=== PATIENT | female | born 1975 | race African-American/Black ===

== ENCOUNTER → 2016-09-04 | Outpatient (CLI) | payer OTHER | LOC: RAD 15:50 | PROVIDERS: ATTEND Nurse Practitioner Family | DX: M25.562 Pain in left knee (principal); M25.561 Pain in right knee; M22.42 Chondromalacia patellae, left knee; M22.41 Chondromalacia patellae, right knee ==

== ENCOUNTER → 2017-07-07 | Outpatient (CLI) | payer OTHER | LOC: OD 09:22 | PROVIDERS: ATTEND Physician Assistant | DX: Z11.2 Encounter for screening for other bacterial diseases (principal) | CPT/HCPCS: 87070 ==

== ENCOUNTER 2019-06-09 19:17 | Emergency (ER) | payer OTHER ==
[2019-06-09 19:26] VITALS: BP 112/73
[2019-06-09] MEDS ORDERED: LIDOCAINE 4% TRANSPARENT DRESSING 5 GM KIT TP ONE (19:59)
--- NOTE | 2019-06-09 20:05 | ER Document Report ---
HPI - HPI Time Seen by Provider: 06/09/19 19:40 Pain Level: 3 Context: Patient is a 44-year-old female who presents to the emergency department with a chief complaint of a bump to the left side of her anterior hip. She states that she felt that there was a pocket of pus there and she ended up squeezing it and was able to get pus out, but then had a piece of tissue that came out. States that the tissue that is out hurts. - CONSTITUTIONAL Constitutional: DENIES: Fever, Chills - EENT EENT: DENIES: Sore Throat - CARDIOVASCULAR Cardiovascular: DENIES: Chest pain - RESPIRATORY Respiratory: DENIES: Coughing - REPRODUCTIVE Reproductive: DENIES: : - MUSCULOSKELETAL Musculoskeletal: DENIES: Extremity pain - DERM Skin Color: Normal Skin Problems: Pustule - left anterior hip Past Medical History - General Information source: Patient - Social History Smoking Status: Never Smoker Chew tobacco use (# tins/day): No Frequency of alcohol use: None Drug Abuse: None Family History: Reviewed & Not Pertinent Patient has suicidal ideation: No Patient has homicidal ideation: No Vertical Provider Document - CONSTITUTIONAL Agree With Documented VS: Yes Exam Limitations: No Limitations General Appearance: No Apparent Distress - INFECTION CONTROL TRAVEL OUTSIDE OF THE [place] IN LAST 30 DAYS: No - HEENT HEENT: Atraumatic, Normocephalic, PERRLA - RESPIRATORY Respiratory: No Respiratory Distress - CARDIOVASCULAR Cardiovascular: Regular Rhythm Pulses: Normal: Radial - MUSCULOSKELETAL/EXTREMETIES Musculoskeletal/Extremeties: FROM - NEURO Level of Consciousness: Awake, Alert, Appropriate - DERM Integumentary: Warm, Dry, No Rash, Abscess - no purulent drainage, but subcutaneous fat coming out of skin from the area of left hip Course - Re-evaluation Re-evalutation: 06/09/19 21:26 She was numbed with topical lidocaine and I was able to remove the subcutaneous fat that was protruding from the hole at her left hip area he tolerated the procedure well. Patient will be placed on Bactrim, as she did have pus coming from that area. She will follow-up with her primary care provider. Follow-up precautions were given. Verbal discharge instructions were given to the patient. They verbalized understanding. They are stable for discharge. - Vital Signs Vital signs: Temp Pulse Resp BP Pulse Ox 98.6 F 104 H 16 112/73 100 06/09/19 19:24 06/09/19 19:24 06/09/19 19:24 06/09/19 19:24 06/09/19 19:24 Discharge - Discharge Clinical Impression: Abscess Condition: Stable Disposition: HOME, SELF-CARE Instructions: Trimethoprim-Sulfa ([facility]) Additional Instructions: You were seen today in the emergency department for an abscess that you ended up draining your self. A small amount of fat had come out of the hole after you squeezed it. The fat was cut away here in the emergency department. There is a chance that the area may bleed. If it does, apply pressure. Please follow-up with a primary care provider in regards to this visit. You are also being started on antibiotics. Please finish all your antibiotics as prescribed. Prescriptions: Sulfamethoxazole/Trimethoprim [Bactrim Ds Tablet] 1 each PO BID 7 Days #14 tablet Referrals: OLEGARIO KLEIN PA [PHYSIC[facility]] - Follow up as needed
== END 2019-06-09 21:45 | disposition home or self-care (01) ==
LOC: ER 19:17
DX: L02.416 Cutaneous abscess of left lower limb (principal)
CPT/HCPCS: 99283; 10060; J3490

== ENCOUNTER 2019-12-03 18:38 | Emergency (ER) | payer OTHER ==
--- NOTE | 2019-12-03 19:46 | ER Document Report ---
ED Medical Screen (RME) - General Chief Complaint: Vaginal Bleeding Stated Complaint: VAGINAL BLEEDING Time Seen by Provider: 12/03/19 19:41 Primary Care Provider: RANJANA KENT MD [Primary Care Provider] - Follow up as needed Mode of Arrival: Ambulatory Information source: Patient Notes: HPI; 44-year-old female presents emergency room complaining of vaginal bleeding with clots that started 7 days ago. Dates she is only lightly spotting at this time. Patient states "I think I am having a miscarriage". States her last normal menstrual cycle was in August. Sexually active not using control. She is a 5 para 2 denies any pain. PE: Alert and oriented x3. Lungs: Clear to auscultation without rales, rhonchi, wheezes. Heart: Regular rate rhythm without murmurs, rubs, gallops. Unable to do full exam in triage. I have greeted and performed a rapid initial assessment of this patient. A comprehensive ED assessment and evaluation of the patient, analysis of test results and completion of the medical decision making process will be conducted by additional ED providers. I have specifically instructed the patient or family members with the patient to immediately return to any nursing staff should anything change in the patient's condition or with their chief complaint. TRAVEL OUTSIDE OF THE [place] IN LAST 30 DAYS: No - Related Data Allergies/Adverse Reactions: metronidazole [From Flagyl] Allergy (Verified 06/09/19 19:43) Physical Exam - Vital signs Vitals: Temp Pulse Resp BP Pulse Ox 98.7 F 87 16 111/69 100 12/03/19 19:03 12/03/19 19:03 12/03/19 19:03 12/03/19 19:03 12/03/19 19:03 Course - Vital Signs Vital signs: Temp Pulse Resp BP Pulse Ox 98.7 F 87 16 111/69 100 12/03/19 19:36 12/03/19 19:03 12/03/19 19:03 12/03/19 19:03 12/03/19 19:03 Doctor's Discharge - Discharge Referrals: RANJANA KENT MD [Primary Care Provider] - Follow up as needed
[2019-12-03 20:45] LABS: ABSOLUTE EOSINOPHILS # (AUTO) 0.1 10^3/uL (0.0-0.6); ABSOLUTE MONOCYTES (AUTO) 0.4 10^3/uL (0.1-1.4); BASOPHILS % (AUTO) 0.6 % (0-2); EOSINOPHILS % (AUTO) 1.9 % (0-6); HEMATOCRIT 40.6 % (36.0-47.0); HEMOGLOBIN 13.5 g/dL (12.0-15.5); LYMPHOCYTES % (AUTO) 36.4 % (13-45); MEAN CORPUSCULAR HEMOGLOBIN 28.2 pg (27.0-33.4); MEAN CORPUSCULAR HGB CONC 33.2 g/dL (32.0-36.0); MEAN CORPUSCULAR VOLUME 85 fl (80-97); PLATELET COUNT 173 10^3/uL (150-450); RED BLOOD COUNT 4.77 10^6/uL (3.72-5.28); RED CELL DISTRIBUTION WIDTH 14.1 % (11.5-14.0); SEGMENTED NEUTROPHILS % (AUTO) 54.1 % (42-78); TOTAL CELLS COUNTED % (AUTO) 100 %; WHITE BLOOD COUNT 5.5 10^3/uL (4.0-10.5)
[2019-12-03 21:00] LABS: ALBUMIN 4.8 g/dL (3.5-5.0); ALKALINE PHOSPHATASE 56 U/L (38-126); ANION GAP 8 (5-19); ASPARTATE AMINO TRANSFERASE 25 U/L (14-36); BILIRUBIN,TOTAL 0.3 mg/dL (0.2-1.3); BLOOD UREA NITROGEN 14 mg/dL (7-20); CALCIUM 10.5 mg/dL (8.4-10.2); CARBON DIOXIDE 29 mmol/L (22-30); CHLORIDE 104 mmol/L (98-107); GLUCOSE 88 mg/dL (75-110); POTASSIUM 4.2 mmol/L (3.6-5.0); TOTAL PROTEIN 8.5 g/dL (6.3-8.2)
[2019-12-03 21:04] LABS: APPEARANCE,URINE CLEAR; BILIRUBIN,URINE NEGATIVE (NEGATIVE); COLOR,URINE YELLOW; GLUCOSE, URINE NEGATIVE (NEGATIVE); KETONES,URINE NEGATIVE (NEGATIVE); LEUKOCYTE ESTERASE,URINE TRACE (NEGATIVE); NITRITE,URINE NEGATIVE (NEGATIVE); PROTEIN,URINE NEGATIVE (NEGATIVE); URINE SPECIFIC GRAVITY 1.027; UROBILINOGEN,URINE NEGATIVE mg/dL (<2.0)
--- NOTE | 2019-12-03 22:12 | ER Document Report ---
ED General - General Chief Complaint: Vaginal Bleeding Stated Complaint: VAGINAL BLEEDING Time Seen by Provider: 12/03/19 19:41 Primary Care Provider: RANJANA KENT MD [Primary Care Provider] - Follow up as needed Mode of Arrival: Ambulatory Information source: Patient Notes: Patient is a 44-year-old female presenting to the emergency department chief complaint of vaginal bleeding. Patient states she had no period in September and October however on 24 November she did start bleeding and on 28 November she was passing some clots patient is here for evaluation and treatment. Patient states that discounting this episode she is 6 para 2 a 4. Patient denies travel history trauma history no nausea vomiting diarrhea fevers chills cough or cold symptoms. TRAVEL OUTSIDE OF THE [place] IN LAST 30 DAYS: No - HPI Onset: Last week Onset/Duration: Gradual, Persistent Quality of pain: Achy Severity: Mild Pain Level: 1 Associated symptoms: None Exacerbated by: Denies Relieved by: Denies Similar symptoms previously: Yes Recently seen / treated by doctor: No - Related Data Allergies/Adverse Reactions: metronidazole [From Flagyl] Allergy (Verified 06/09/19 19:43) Past Medical History - General Information source: Patient - Social History Smoking Status: Never Smoker Chew tobacco use (# tins/day): No Frequency of alcohol use: None Drug Abuse: None Lives with: Family Family History: Reviewed & Not Pertinent Patient has suicidal ideation: No Patient has homicidal ideation: No - Medical History Medical History: Negative Surgical Hx: Negative Review of Systems - Review of Systems Constitutional: No symptoms reported EENT: No symptoms reported Cardiovascular: No symptoms reported Respiratory: No symptoms reported Gastrointestinal: No symptoms reported Genitourinary: No symptoms reported Female Genitourinary: See HPI Musculoskeletal: No symptoms reported Skin: No symptoms reported Hematologic/Lymphatic: No symptoms reported Neurological/Psychological: No symptoms reported Physical Exam - Vital signs Vitals: Temp Pulse Resp BP Pulse Ox 98.7 F 87 16 111/69 100 12/03/19 19:03 12/03/19 19:03 12/03/19 19:03 12/03/19 19:03 12/03/19 19:03 - Notes Notes: PHYSICAL EXAMINATION: GENERAL: Well-appearing, well-nourished and in no acute distress. HEAD: Atraumatic, normocephalic. EYES: Pupils equal round and reactive to light, extraocular movements intact, sclera anicteric, conjunctiva are normal. ENT: nares patent, oropharynx clear without exudates. Moist mucous membranes. NECK: Normal range of motion, supple without lymphadenopathy, no appreciable JVD LUNGS: Lungs clear to auscultation bilaterally and equal. No wheezes rales or rhonchi. HEART: Regular rate and rhythm without murmurs ABDOMEN: Soft, nontender, normal bowel sounds. No guarding, no rebound. No masses appreciated. EXTREMITIES: Active full range of motion, no pitting or edema. No cyanosis. 2+ pulses x4 NEUROLOGICAL: No focal neurological deficits. Moves all extremities spontaneously and on command. SKIN: Warm, Dry, and intact. Normal turgor, no rashes or lesions noted. Course - Re-evaluation Re-evalutation: 12/03/19 22:23 Laboratory results have been reviewed by me patient is resting comfortably in hospital bed. The radiologist has requested further ultrasound images prior to evaluating the patient's ultrasound. 12/03/19 23:11 Ultrasound was eventually read by radiology as negative for any abnormal findings. Patient will be discharged home with a clinical impression of dysfunctional uterine bleeding and recommended to follow-up with her primary care provider and/or [facility] physician on Friday. Patient is agreeable with care plan and discharged in stable condition. - Vital Signs Vital signs: Temp Pulse Resp BP Pulse Ox 98.7 F 87 16 111/69 100 12/03/19 19:36 12/03/19 19:03 12/03/19 19:03 12/03/19 19:03 12/03/19 19:03 - Laboratory Result Diagrams: 12/03/19 20:03 12/03/19 20:03 Laboratory results interpreted by me: 12/03/19 12/03/19 12/03/19 20:03 20:03 20:03 RDW 14.1 H Calcium 10.5 H Total Protein 8.5 H Urine Blood MODERATE H Ur Leukocyte Esterase TRACE H - Diagnostic Test Radiology reviewed: Reports reviewed Discharge - Discharge Clinical Impression: Vaginal bleeding Condition: Stable Disposition: HOME, SELF-CARE Additional Instructions: VAGINAL BLEEDING: You are having an episode of abnormal bleeding. Causes of abnormal vaginal bleeding can include miscarriage or tubal , tumors such as cancer or benign fibroids, medication effects, or hormone imbalance. Testing can eliminate unsuspected , tumors, or infection as a cause. "Dysfunctional uterine bleeding" is due to hormone imbalance, and is especially common at times when the normal cycle is disturbed -- whether by recent , use of control pills or hormones, or impending menopause. If the bleeding is innocent, most commonly a short course of hormones is given to restore the uterus to normal. Sometimes, the normal menstrual cycle corrects itself naturally. Sometimes, brief hormone therapy, or even a D&C is required. Your physician will advise you. Treatment for anemia may be required if bleeding is severe. You should rest and avoid intercourse until the bleeding is controlled. Call the doctor or return for re-examination if you feel faint, have increasing pain, or have a major increase in the amount of bleeding. NORMAL EXAM AND WORKUP: At this time, except for vaginal bleeding, your examination and workup show no significant abnormality. No significant abnormal physical findings were noted. All laboratory, EKG, and imaging (x-ray, CT scans, ultrasound) studies that were ordered show no significant abnormality. Although your examination and all studies that were ordered showed no significant abnormal finding, there are no examinations and no studies that are 100% accurate. There is always the possibility that some abnormality could exist and not be detected with physical examination or within the limits and capabilities of laboratory and other studies. You should return or follow up as you were instructed on your visit today for further evaluation if your symptoms do not resolve. FOLLOW-UP CARE: If you have been referred to a physician for follow-up care, call the physicians office for an appointment as you were instructed or within the next two days. If you experience worsening or a significant change in your symptoms (very heavy bleeding with large clots of blood, passage of tissue, more severe abdominal / pelvic pain or cramping, feeling faint or severe weakness, fever, etc.), notify the physician immediately or return to the Emergency Department at any time for re-evaluation. OBSTETRIC[facility]GYNECOLOGIC ([employer]) PHYSICIANS IN [place]: [facility] [address], [place] [phone] [facility] [address] [place] [address] [phone] Referrals: RANJANA KENT MD [Primary Care Provider] - Follow up as needed
--- NOTE | 2019-12-03 23:05 | RADIOLOGY REPORT (SQ) ---
EXAM DESCRIPTION: US PELVIS COMPLETED DATE/TME: 12/03/2019 21:01 CLINICAL HISTORY: 44 years, Female, vaginal bleeding COMPARISON: None. TECHNIQUE: Endovaginal images of the pelvis were obtained. Grayscale imaging and Doppler imaging were performed. LIMITATIONS: None. FINDINGS: Uterus measures approximately 8.9 x 4.6 x 5.3 cm. No myometrial mass is seen. Endometrium has a homogenous appearance with a stripe thickness of 3 mm. Right ovary measures approximately 2.7 x 1.1 x 1.8 cm left ovary measures approximately 2.5 x 2 x 2.4 cm. There is no adnexal mass or free pelvic fluid. There is no evidence of ovarian torsion on Doppler imaging. IMPRESSION: No adnexal mass or evidence of ovarian torsion. Endometrial stripe thickness is 3. copyright 2011 [email or web address]- All Rights Reserved
[2019-12-03 23:27] VITALS: BP 109/76
== END 2019-12-03 23:30 | disposition home or self-care (01) ==
LOC: ER 18:38
DX: N93.8 Other specified abnormal uterine and vaginal bleeding (principal)
CPT/HCPCS: 36415; 76856; 80053; 81001; 84703; 85025; 93976; 99284